=== PATIENT | male | born 1960 | race Caucasian/White ===

== ENCOUNTER 2024-03-15 14:26 | Emergency (ER) | payer OTHER, SELFPAY ==
[2024-03-15 14:28] VITALS: BP 154/92
[2024-03-15 16:03] VITALS: BMI 30.3
[2024-03-15 16:11] VITALS: BP 157/96
[2024-03-15] MEDS: TORADOL 15 MG IM (16:21)
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
[2024-03-15 18:53] VITALS: BP 155/90
== END 2024-03-15 18:56 | disposition home or self-care (01) ==
LOC: EMR 14:26
PROVIDERS: EMERGENCY PHYSICIAN Student in an Organized Health Care Education/Training Program; FAMILY PHYSICIAN Family Medicine
DX: M54.2 Cervicalgia (principal); V43.52XA Car driver injured in collision with other type car in traffic accident, initial encounter; Y92.410 Unspecified street and highway as the place of occurrence of the external cause
CPT/HCPCS: 99284; 96372; 72125

== ENCOUNTER 2024-12-19 06:22 | Day surgery (SDC) | payer OTHER, SELFPAY | END 2024-12-19 12:36 | disposition home or self-care (01) | LOC: GI 06:22 | PROVIDERS: ATTENDING PHYSICIAN Internal Medicine Gastroenterology | DX: Z12.11 Encounter for screening for malignant neoplasm of colon (principal); K64.8 Other hemorrhoids; K57.30 Diverticulosis of large intestine without perforation or abscess without bleeding; Z86.0100 Personal history of colon polyps, unspecified | CPT/HCPCS: G0105 ==

== ENCOUNTER 2025-03-04 18:17 | Observation (INO) | payer OTHER, SELFPAY ==
[2025-03-04 16:53] VITALS: BP 176/93
[2025-03-04 17:02] VITALS: BP 150/93
[2025-03-04 17:08] VITALS: BMI 30.4
[2025-03-04 17:19] LABS: Hematocrit 43.1 % (39.0-52.0); Hemoglobin 14.4 g/dL (13.0-18.0); Mean Corp Hgb Conc. 33.4 g/dL (33.0-37.0); Mean Corpuscular Volume 96.0 fL (80.0-94.0); Nucleated Red Blood Cells % 0 % (-); Platelet Count 211 10^3/uL (130-400); Red Cell Dist. Width 12.9 % (11.5-14.5)
[2025-03-04 17:32] LABS: ALT (SGPT) 23 U/L (0-50); AST (SGOT) 22 U/L (17-59); Albumin 4.5 g/dl (3.5-5.0); Alkaline Phosphatase 60 U/L (38-126); Blood Urea Nitrogen 16 mg/dl (9-20); Calcium 9.5 mg/dl (8.4-10.2); Carbon Dioxide 26 mmol/L (22-30); Chloride 107 mmol/L (98-107); Estimated Creatinine Clearance 84 ml/min; Glucose 115 mg/dl (70-99); Potassium 4.4 mmol/L (3.5-5.1); Sodium 140 mmol/L (135-145); Total Protein 7.3 g/dl (6.3-8.2); eGFR > 60.00
[2025-03-04 17:34] LABS: INR 0.92; PT 12.8 Sec (11.4-14.6)
[2025-03-04 17:35] LABS: APTT 27.4 Sec (23.4-35.0)
--- NOTE | 2025-03-04 17:42 | ED.CVA ---
History of Present Illness
General
Chief Complaint: CVA/TIA Symptoms
Source: patient and spouse
Exam Limitations: none
Time Seen by Provider: 03/04/25 17:06
Onset of Stroke Symptoms
Onset of symptoms known: Yes
Date of onset of symptoms: 03/04/25
History of Present Illness
History of Present Illness:
64-year-old male started with disequilibrium this morning. Has been going on for about 10 hours. About 4 PM he noted some paresthesias to the right face arm and leg. Also felt like he had difficulty walking. No headache visual issues speech
issues or other complaints. No history of same.
Past History
Past History
ED Past Medical History: None
ED Past Surgical History: Other (Hernia repair)
Social History
Tobacco: Non-smoker
Alcohol: Occasional
Drug: None
Personal:
Living: with family
Review of Systems
Review of Systems
All Other Systems: Not applicable
Constitutional: Denies fever
Respiratory: Reports no symptoms
Cardiac: Reports no symptoms
Phy Exam
Physical Exam
Physical Exam:
GENERAL: Alert and oriented in no apparent distress
EYE: Orbits normal.
NECK: Supple, no carotid bruit
ENT: Pharynx without erythema
CARDIAC: Regular rate and rhythm without any obvious murmurs.
LUNGS: Clear breath sounds,normal
ABDOMEN: Soft, without focal tenderness or distention
NEUROLOGICAL: Alert and oriented , cranial nerves II through XII intact. Speech normal. Zrmmrn-vu-[id number] normal. No drift. Qibx-or-uslt normal. Light touch intact. Visual confrontation normal. No extinction.
SKIN: Warm and dry, no rash or lesion, no discoloration, skin intact.
MUSCULOSKELETAL: No edema,no deformity.Good color
PSYCH: Normal and appropriate interaction.
Scores
NIH Stroke Score
Level of Consciousness: 0 - Alert
LOC Questions: 0-Answers both correctly
LOC Commands: 0-Performs both correctly
Best Horizontal Gaze: 0-Normal
Visual Reeves: 0=Normal, no visual loss
Facial Palsy: 0=Normal, symmetrical
Motor - Right Arm: 0=No drift 10 seconds
Motor - Left Arm: 0=No drift 10 seconds
Motor - Right Le-No drift 5 seconds
Motor - Left Le-No drift 5 seconds
Limb Ataxia: 0-Absent
Sensation: 0-Normal
Best Language: 0-No aphasia
Dysarthria: 0-Normal
Extinction and Inattention: 0-No abnormality
NIH Total Score:: 0
Course
Orders/Labs/Results
Orders:
Orders
03/04/25 16:57
Electrocardiogram (*1) Urgent
Reason for Study: Other
Other Reason for Exam: Possible Stroke
CT HEAD STROKE ALERT W/o Cont Urgent
Comment:
Reason For Exam: RUE weakness since 1599
Bedside Glucose- Treatment ONCE
EKG- Treatment ONCE
Weight As Directed
Frequency: Once
Comment: ZERO STRETCHER SCALE FOR ACCURATE WEIGHT
03/04/25 17:09
Complete Blood Count/With Diff Urgent
Comprehensive Metabolic Panel Urgent
PTT Urgent
Prothrombin Time Urgent
Troponin I Urgent
03/04/25 17:21
CT HEAD/NECK ANG STROKE ALERT Urgent
Comment:
Reason For Exam: Disequilibrium/right paresthesia
03/04/25 17:45
Aspirin Chewable [Low Strength Aspirin] 324 mg PO NOW STA
03/04/25 17:58
Admit/Transfer Patient As Directed
Co-Sign Provider:
Level of Care: Observation services
Assign to:: Telemetry
Physician / Group: sanjuanita
Diagnosis: tia
Reason for Telemetry: CVA/TIA
Date to Stop Telemetry: 03/07/25
Time to Stop Telemetry: 11:00
Code Status As Directed
Resuscitation Status: Do not resuscitate
Reached after discussion with pt or family/Healthcare POA: Yes
DNR Bracelet Application ONCE
PRN Pain Medication Management As Directed
May give lesser potent ordered pain med per pt: Yes
preference::
Protocol:: Medication orders for pain may be administered in a
manner that supports deferring to patient preference
when the pt is:
- Requesting an ordered lesser potent pain medication.
Least to most potent pain medications are defined
as: acetaminophen < NSAID < tramadol < opioids
(morphine, oxycodone, hydromorphone).
- Requesting a lesser dose of the same medication IF
ORDERED.
- Requesting a less intrusive route of administration
if both routes are prescribed by the provider (PO <
IV).
03/04/25 18:03
Code Status As Directed
Resuscitation Status: Full Code
03/07/25 11:00
DC Protocol for Telemetry ONCE
Abnormal Lab Results
03/04/25
17:09
RBC 4.49 L 10^6/uL
(4.70-6.10)
MCV 96.0 H fL
(80.0-94.0)
MCH 32.1 H pg
(27.0-31.0)
MPV 11.5 H fL
(7.4-10.4)
Glucose 115 H mg/dl
(70-99)
03/04/25 17:09
03/04/25 17:09
Vital Signs
Initial and Last Documented VS:
Initial Vital Signs
Temp Pulse Resp BP Pulse Ox
98.2 F 61 16 176/93 100
03/04/25 16:53 03/04/25 16:53 03/04/25 16:53 03/04/25 16:53 03/04/25 16:53
Last Documented Vital Signs
Temp Pulse Resp BP Pulse Ox
98.2 F 62 18 150/93 97
03/04/25 16:53 03/04/25 17:04 03/04/25 17:04 03/04/25 17:02 03/04/25 17:45
*Radiology
Radiology exam reviewed: radiology read reviewed (Negative CT head) and other (No retrievable clot and no significant stenosis)
*Pulse Oximetry
SaO2: 97
Oxygen Mode of Delivery: Room air
Patient hypoxic: no (97)
*Critical Care Note
Total Time (30-74mins, 75-104mins- exclusive of procedures): 40
Update Note
Update Note:
Discussed with neurology fellow. Patient subjectively has some paresthesias to the right arm and feels like his equilibrium is off. He apparently had trouble ambulating getting off the CAT scan machine but when I tested his ambulation he actually
ambulated fairly well with a very slight limp. Patient is not in thrombolytic window based on the disequilibrium. And disability is too low to recommend it anyway. This was discussed with patient and his
ED Attending Note
-
Portions of this chart may have been created with voice recognition software.� Occasional wrong word or��sound alike� substitutions may have occurred due to the inherent limitations of voice recognition software.
Discharge Plan
Departure
Patient Disposition: Admit
Date of Disposition: 03/04/25
Time of Disposition: 17:46
Presentation/result/management discussed w/ accepting MD/DO: Hospitalist
Discharge Problem:
Possible CVA
Interventions
Interventions:
*Risk Screen - Suicide Last Done: 03/04/25 17:37
*General Assessment Last Done: 03/04/25 17:36
*ED- Fall Risk Assessment Last Done: 03/04/25 17:37
ED- Pulmonary Assessment Last Done: 03/04/25 17:12
ED- Neurological Assessment Last Done: 03/04/25 17:15
ED- Cardiac Assessment Last Done: 03/04/25 17:12
ED Swallowing Screen Last Done: 03/04/25 17:43
[2025-03-04 17:45] LABS: Troponin I < 0.012 ng/ml
[2025-03-04] MEDS: LOW STRENGTH ASPIRIN 324 MG PO (17:55)
--- NOTE | 2025-03-04 18:00 | HPS.HSE ---
Addendum entered and electronically signed by Roseann Humphrey MD 03/04/25 18:04:
Patient wants to be full code.
Original Note:
Family Physician
-
Family Physician: Charly Mcginnis
Chief Complaint
-
disequilibrium and parasthesia
History of Present Illness
64-year-old male past medical history of presenting with disequilibrium and dizziness this morning. Ongoing for 10 hours. At 4 PM he noticed paresthesias of the right face and leg and weakness of the right leg. He also had difficulty walking. No
headache or visual issues or speech issues. Denies history of stroke. Never had symptoms like this before.
Denies smoking or alcohol use or drugs.
Family history of heart disease. No family history of strokes.
Medical History
Past Medical History
Past Medical History: Reports None
Past Surgical History: Reports Other ( Hernia repair)
Social History
Tobacco: Non-smoker
Alcohol: None
Drug: None
Family History
Family History: Not pertinent
Allergies / Home Medications
Allergies reflects when Allergies were last updated in [facility].
Home Medications with original date entered in [facility]
Allergy/Medication List:
Allergies
Allergy/AdvReac Type Severity Reaction Status Date / Time
No Known Allergies Allergy Verified 03/04/25 16:53
Home Medications
cyclobenzaprine 10 mg tablet 10 mg PO BID 5 days #10 tabs 03/15/24
ibuprofen 600 mg tablet 600 mg PO Q8H PRN Pain #20 tabs 03/15/24
Review of Systems
-
Constitutional: Reports No Symptoms
EENT: Reports No Symptoms
Respiratory: Reports No Symptoms
Cardiac: Reports No Symptoms
Abdomen/GI: Reports No Symptoms
: Reports No Symptoms
Musculoskeletal: Reports No Symptoms
Skin: Reports No Symptoms
Neurological: Reports See HPI
Endocrine: Reports No Symptoms
Hematologic/Lymphatic: Reports No Symptoms
Psych: Reports No Symptoms
Physical Exam
Vital Signs
Vital Signs
Temp Pulse Resp BP Pulse Ox
98.2 F 62 18 150/93 97
03/04/25 16:53 03/04/25 17:04 03/04/25 17:04 03/04/25 17:02 03/04/25 17:45
Physical Exam
General: Well Developed, Well Nourished and No Apparent Distress
HEENT: NormoCephalic, Moist mucous membranes and Atraumatic
Respiratory: Clear
Cardiac: S1/S2 and Regular Rhythm; No Murmur or Rub
GI: Soft, Non Tender, Non Distended and Normal Bowel Sounds; No Organomegaly
Rectal: Deferred by Provider
Musculoskeletal: No Clubbing, No Cyanosis and No Edema
Skin: No Rash
Neuro: Nonfocal/grossly intact
Laboratory Results
-
03/04/25 17:09
03/04/25 17:09
Laboratory Results
PT 12.8 Sec (11.4-14.6) 03/04/25 17:09
INR 0.92 03/04/25 17:09
APTT 27.4 Sec (23.4-35.0) 03/04/25 17:09
Total Bilirubin 0.5 mg/dl (0.2-1.3) 03/04/25 17:09
AST 22 U/L (17-59) 03/04/25 17:09
ALT 23 U/L (0-50) 03/04/25 17:09
Alkaline Phosphatase 60 U/L (38-126) 03/04/25 17:09
Troponin I < 0.012 ng/ml 03/04/25 17:09
Data Reviewed
-
Lab Data: Labs Reviewed by me
Old Records: Reviewed
Impression/Plan
-
IMPRESSION:
PLAN:
# Disequilibrium/right-sided paresthesias concerning for TIA
-No symptoms currently, NIH 0
- Aspirin 325 mg given
- CT head shows no acute abnormality
- CTA head and neck pending
- Check MRI brain
- Check A1c and lipid panel
DNR/DNI
DVT prophylaxis�SCDs
Regular diet
[2025-03-04 20:48] VITALS: BP 150/81
[2025-03-04 21:03] VITALS: BP 142/84
[2025-03-04 21:40] VITALS: BP 152/80; BMI 29.7
--- NOTE | 2025-03-04 22:00 | PTCARENOTE ---
Pt brought to unit from ED via stretcher. Ambulated to bed. A&Ox3. NIH of 0. Oriented to unit. Call light within reach. Plan of care ongoing.
[2025-03-04 22:22] LABS: HDL Cholesterol 56 mg/dl; LDL Cholesterol, Calculated 126 mg/dl; Very Low Density Lipoprotein 37 mg/dl (0-30)
[2025-03-05 03:20] VITALS: BP 123/77
--- NOTE | 2025-03-05 07:07 | W.PN.HOSP.TC ---
Today's Communication/Plan
-
discharge
Assessment / Plan
Assessment / Plan
Physical Exam
General: No acute distress, appears comfortable at this time
HEENT: NormoCephalic, Moist mucous membranes and Atraumatic
Respiratory: Clear to auscultation b/l
Cardiac: S1/S2 and Regular Rhythm; No Murmur or Rub
GI: Soft, Non Tender, Non Distended and Normal Bowel Sounds; No Organomegaly
Musculoskeletal: No Clubbing, No Cyanosis and No Edema
Skin: No Rash
Neuro: AOx3 conversant coherent
Psych: Calm
64M Hx Hernia Repair otherwise no significant PMHx here for evaluation transient right sided weakness paraesthesia ambulatory dysfunction TIA, CVA ruled out.
PLAN:
# Disequilibrium/right-sided paresthesias concerning for TIA
-No symptoms currently, NIH 0
- Aspirin 325 mg given
- CT head shows no acute abnormality
- CTA head and neck noted no high-grade stenosis or occlusion of the [place], 50% stenosis left carotid bulb noted
- Carotid US appreciated appreciated no significant stenosis b/l
- MRI brain appreciated no acute abn's
- A1c pending, sugar levels in BMP not suggestive of diabetes
- Lipid panel appreciated Hyperlipidemia
- Neuro eval appreciated ASA Plavix 21 days then ASA alone, Atorvastatin 80 mg daily
-PT/OT eval appreciated no needs
Full Code
DVT prophylaxis�SCDs
Medically stable for discharge home with outpatient follow up recommendations.
Total Time Preparing Discharge ___40____ minutes including examination of the patient, summary of the hospital stay, instructions for continuing care to all relevant caregivers; and preparation of discharge records, prescriptions, and referral
forms if necessary.
Anticipated Discharge: Today
Subjective/Interval History
-
Date of Service: March 05, 2025
Seen and examined at bedside in no acute distress resting comfortably in bed. Reports symptoms completely resolved at this time. Overall reports feeling well. Eager to go home. present during evaluation.
Objective Data
-
Labs:
Laboratory Results
03/05/25
07:07
WBC Pending
Hgb Pending
Hct Pending
Plt Count Pending
Sodium Pending
Potassium Pending
Chloride Pending
Carbon Dioxide Pending
BUN Pending
Creatinine Pending
Glucose Pending
Calcium Pending
Total Bilirubin Pending
AST Pending
ALT Pending
Alkaline Phosphatase Pending
Vital Signs:
Vital Signs
Temp Pulse Resp BP Pulse Ox
97.6 F 60 16 123/77 95
03/05/25 03:20 03/05/25 03:20 03/05/25 03:20 03/05/25 03:20 03/05/25 03:20
I&O
03/04/25 03/05/25 03/06/25
06:59 06:59 06:59
Intake Total 240 / 240
Balance 240 / 240
[2025-03-05 07:58] LABS: Hematocrit 40.1 % (39.0-52.0); Hemoglobin 13.5 g/dL (13.0-18.0); Mean Corp Hgb Conc. 33.7 g/dL (33.0-37.0); Mean Corpuscular Volume 95.2 fL (80.0-94.0); Nucleated Red Blood Cells % 0 % (-); Platelet Count 193 10^3/uL (130-400); Red Cell Dist. Width 12.8 % (11.5-14.5)
--- NOTE | 2025-03-05 08:21 | CON.NEURO4 ---
Addendum entered and electronically signed by Jaylan Rivers MD 03/05/25 09:44:
Studies reviewed.
I have personally examined the patient. I reviewed and agree with the LOCATION ANALYST's Note.
My addenda:
Awake, alert, interactive. No acute distress.
Speech intact.
Follows 2-step requests w/o difficulty. No tremor.
Extra-ocular movements grossly intact.
Facial movements full and symmetric. Hearing intact to normal conversational volume.
Normal UE movements bilaterally.
Neck: full ROM.
Chest: no dyspnea
Heart: no JVD
Ext: (-) Clubbing, (-) Cyanosis, (-) Edema
IMPRESSIONS/RECOMMENDATIONS:
Abrupt onset of right hemibody sense of weakness and disequilibrium during headache. Patient found to have 50% left internal carotid artery stenosis.
Provide dual antiplatelet therapy with aspirin and clopidogrel for 21 days then aspirin alone
Provide prochlorperazine 10 mg as needed for headache which the patient is experiencing currently again today
Initiate atorvastatin 80 mg daily due to elevated LDL greater than 70
Check carotid ultrasound, if carotid ultrasound demonstrates 50 or greater percent stenosis of the left internal carotid artery, would consult vascular surgery to determine if procedural intervention is warranted
Check blood work for potential metabolic abnormalities
Rehabilitation evaluations
Provide medical educational materials
D/W patient
All questions answered.
Will continue to follow pending results.
Original Note:
Documented by User: Kristal Rust NP 03/05/25 09:14
Consultation - Neurology 4
-
CONSULTING PHYSICIAN: Jaylan Rivers MD
REFERRING PHYSICIAN: Hospitalists/Dr. Steven
DICTATED BY: AMISHA Osuna
DATE/TIME OF REQUEST: 03/05/25
DATE/TIME OF CONSULTATION: 03/05/25
Reason for Consultation: Headache, right-sided numbness/weakness, disequilibrium
History of Present Illness:
This is a 64-year-old right-handed male who has presented to the hospital on 03/04/25 with report of disequilibrium and transient right-sided paresthesias/weakness. He was previously evaluated by our Neurology service once in 2016 for report of
three weeks of headache, at which time he had an MRI brain and MRA head/neck that were unremarkable.
Patient reports that two nights ago on 03/03/25 he went to bed around 2200 in his usual state. He awoke to use the bathroom during the night once around 0300 and still felt in his usual state. He then awoke yesterday morning (03/04/25) at 0700 with a
headache. The headache is left-sided behind and above his left eye. He describes it as an aching sensation and rates it a 6-7/10. He denies any photo/phonophobia, nausea, or vomiting. The headache persisted throughout the day. At 1600, he notes that
he suddenly developed a sensation of disequilibrium and his entire right arm and right leg became numb and weak. He couldn't lift his right arm and he notes that his right leg felt difficult to place where it moved and was unsteady standing on it.
These symptoms completely resolved after 10 minutes. He called his PCP who referred him to the ER for evaluation. CT head and CTA head/neck were obtained on arrival and are negative for any acute abnormalities. NIHSS was 0. He was not a candidate
for TNK/IAT due to NIHSS 0, no LVO. Blood pressure was 176/93. He was given a full dose aspirin in the ER.
This morning (03/05/25), he notes that he still has his 6-7/10 left-sided headache. He denies any dizziness, vision changes, speech/swallow difficultly, numbness and weakness. He notes that he has a headache about once per month. His headaches are
not associated with photo/phonophobia, nausea, or vomiting. He has never had numbness, weakness, or disequilibrium with a headache in the past.
Past Medical History: HLD
Surgical History: Inguinal hernia repair
Family History: Reviewed and noncontributory.
Social History: Denies tobacco and illicit drug use. Occasional alcohol.
Allergies: No known allergies.
Home Medications: See below.
Review of Symptoms:
Patient denies any fever, chest pain, shortness of breath, GI or symptoms.
�Per the HPI.�All systems are reviewed negative except above.
Physical Exam:
The patient is afebrile, abdomen is nondistended, breathing is unlabored, skin is warm and dry, no edema.
NIH Stroke Scale:
I performed the NIH stroke scale on the patient on 03/05/25 at 0830. The patient scored 0 points on the NIH stroke scale assessment, which were assigned as follows: See below.
Neurologic Examination:
The patient is awake, alert and oriented x 3. He is able to follow commands and answer questions appropriately. There is no aphasia or dysarthria. On cranial nerve assessment, pupils are 3 mm bilateral, round and reactive to light and
accommodation. Visual reeves are full. Extraocular movements are intact. Facial sensations are intact and bilaterally symmetrical, there is no facial asymmetry. Hearing is intact bilaterally to normal conversation volume. Tongue palate and uvula are
midline. Sternocleidomastoid strengths are full bilaterally. Motor strengths are 5/5 bilateral upper and lower extremities on medical research [place] scale. There is no drift or involuntary movement noted. Deep tendon reflexes are 2+ bilateral
upper and lower extremities and Babinski is absent bilaterally. There was no extinction noted on double simultaneous stimulation. Coordination is intact by finger to nose bilaterally.
Lab Results: See below.
Neuro Imaging:
1. CT head 03/04/25: No acute intracranial abnormality. ASPECT score: 10.
2. CTA head/neck 03/04/25: No evidence for high-grade stenosis or occlusion of the afognak of [place]. Bilateral carotid bifurcation atherosclerosis with 50% stenosis of the left carotid bulb and less than 30% stenosis of the right carotid bulb.
Differentials for the patient's presentation include:
1. Headache associated with transient disequilibrium and right-sided paresthesias/weakness. Uncertain etiology of symptoms; possibilities include TIA, small ischemic stroke, or migraine with aura.
2. CTA head/neck is suggestive of L ICA 50% stenosis.
3. Hyperlipidemia.
Patient has the following risk factors for their symptoms: HLD, hx headaches
IV Tenecteplase/IAT candidacy: Not a candidate due to NIHSS 0, no LVO.
Recommendations:
-MRI brain noncontrast pending.
-Carotid ultrasound pending to evaluate for L ICA stenosis.
-Provide prochlorperazine 10mg IV x1 now for headache.
-Continue DAPT with aspirin 81mg and clopidogrel 75mg daily for 21 days. After 21 days, discontinue clopidogrel and continue aspirin 81mg daily only, indefinitely.
-Goal normotension.
-LDL goal <70. LDL is 126. Continue newly initiated atorvastatin 80mg daily.
-Goal normoglycemia, hbA1c is pending.
-Checking blood work for metabolic abnormalities.
-NIHSS and neurological checks per unit guidelines.
-Provide patient with a stroke education packet.
-PT/OT/ST evaluation.
-DVT prophylaxis.
-Will follow pending results.
-Patient should follow-up as an outpatient with Neurology.
Discussed patient care with: Dr. Rivers, the patient
Vital Signs and Labs
-
Vital Signs and Labs:
Vital Signs
Temp Pulse Resp BP Pulse Ox
97.3 F 56 16 139/84 97
03/05/25 08:27 03/05/25 08:27 03/05/25 08:27 03/05/25 08:27 03/05/25 08:27
Lab Results
03/05/25 07:07
03/05/25 07:07
PT 12.8 Sec (11.4-14.6) 03/04/25 17:09
INR 0.92 03/04/25 17:09
APTT 27.4 Sec (23.4-35.0) 03/04/25 17:09
Sodium 139 mmol/L (135-145) 03/05/25 07:07
Potassium 4.3 mmol/L (3.5-5.1) 03/05/25 07:07
BUN 14 mg/dl (9-20) 03/05/25 07:07
Glucose 83 mg/dl (70-99) 03/05/25 07:07
Calcium 9.1 mg/dl (8.4-10.2) 03/05/25 07:07
LDL Cholesterol, Calc Cancelled 03/04/25 21:44
Medications
-
Active Medications
Generic Name Dose Route Start Last Admin
Trade Name Freq PRN Reason Stop Dose Admin
Acetaminophen 650 mg 03/05/25 08:32
Acetaminophen 325 Mg Tablet PO 04/02/25 08:31
Q6HPRN PRN
mild pain/ fever>100.5F/SCHREIBER
Aspirin 81 mg 03/05/25 08:00 03/05/25 08:24
Aspirin 81 Mg (Enteric Coated) Tablet PO 04/02/25 07:59 81 mg
DAILY CHUCK Administration
Atorvastatin Calcium 80 mg 03/05/25 18:00
Atorvastatin (Lipitor) 80 Mg Tablet PO 04/02/25 17:59
QPM CHUCK
Clopidogrel Bisulfate 75 mg 03/05/25 08:00 03/05/25 08:24
Clopidogrel 75 Mg Tablet PO 03/25/25 08:01 75 mg
DAILY CHUCK Administration
Home Medications
�Medication �Instructions �Recorded
No Meds [No Current Medications] 03/04/25
NIH Stroke Score
Subsequent NIH Scale
Date of Subsequent NIH Scale: 03/05/25
Time of Subsequent NIH Scale: 08:30
NIH Stroke Score
Level of Consciousness: 0 - Alert
LOC Questions: 0-Answers both correctly
LOC Commands: 0-Performs both correctly
Best Horizontal Gaze: 0-Normal
Visual Reeves: 0=Normal, no visual loss
Facial Palsy: 0=Normal, symmetrical
Motor - Right Arm: 0=No drift 10 seconds
Motor - Left Arm: 0=No drift 10 seconds
Motor - Right Le-No drift 5 seconds
Motor - Left Le-No drift 5 seconds
Limb Ataxia: 0-Absent
Sensation: 0-Normal
Best Language: 0-No aphasia
Dysarthria: 0-Normal
Extinction and Inattention: 0-No abnormality
NIH Total Score:: 0
Modified [place] (mRS) Score
Modified [place] Scale (mRS): No symptoms
Score: 0
Alteplase Contraindication
Inclusion and Exclusion criteria reviewed: Yes

Documented by User: Jaylan Rivers MD 03/05/25 09:30
NIH Stroke Score
NIH Stroke Score
NIH Total Score:: 0
Modified [place] (mRS) Score
Score: 0
[2025-03-05] MEDS: ASPIR LOW (ENTERIC COATED) 81 MG PO (08:24)
[2025-03-05] MEDS: PLAVIX 75 MG PO (08:24)
[2025-03-05 08:27] VITALS: BP 139/84
[2025-03-05 08:49] LABS: ALT (SGPT) 22 U/L (0-50); AST (SGOT) 21 U/L (17-59); Albumin 4.0 g/dl (3.5-5.0); Alkaline Phosphatase 56 U/L (38-126); Blood Urea Nitrogen 14 mg/dl (9-20); Calcium 9.1 mg/dl (8.4-10.2); Carbon Dioxide 24 mmol/L (22-30); Chloride 109 mmol/L (98-107); Estimated Creatinine Clearance 83 ml/min; Glucose 83 mg/dl (70-99); Potassium 4.3 mmol/L (3.5-5.1); Sodium 139 mmol/L (135-145); Total Protein 6.6 g/dl (6.3-8.2); eGFR > 60.00
[2025-03-05] MEDS: COMPAZINE 10 MG IV (08:57)
[2025-03-05 10:17] LABS: Ferritin 185.0 ng/ml (17.9-464.0)
[2025-03-05 10:49] LABS: Folate 11.2 ng/ml (2.76-20); Vitamin B12 616 pg/ml (239-931)
[2025-03-05 11:34] VITALS: BP 148/94
--- NOTE | 2025-03-05 12:14 | CM ---
Patient seen at bedside
IA completed
ABDUL form explained & signed. In chart
Dx: TIA
MRI brain-No acute intracranial abnormality noted
Patient lives with in 1 story home, [address]
PLOF: Independent, drives
Denies DME
Denies VN/Rehab
PCP: Charly Mcginnis
Pharmacy: [facility]
PLAN: home, no needs anticipated
[2025-03-05 12:45] VITALS: BP 130/83; PULSE 65; O2SAT 98
--- NOTE | 2025-03-05 14:23 | W.DCSUMMARY ---
Discharge Summary
Discharge Data
Date of Admission: 03/04/25
Date of Discharge: 03/05/25
-
Pending Results: Yes (A1c)
Discharge Plan
-
Patient Disposition: Home (Routine Discharge)
Discharge Diagnosis/Procedures: Transient Ischemic Attack (TIA)
Stroke ruled out
Hyperlipidemia
Condition: Good
Diet: Low Cholesterol and 2 Gram Sodium
Activity: As tolerated
Driving Restrictions: As prior to admission
Bathing Restrictions: None
Blood Work: Repeat Lipid Panel with primary care provider in 1 month of discharge
Activity Restrictions/Additional Instructions:
Follow up with primary care provider in 1 week of discharge and Neurology in 1 month of discharge.
Dual antiplatelet, Aspirin and Plavix, prescribed for 21 days (one day completed in hospital) for treatment severe transient ischemic attack (TIA) and associate stroke risk reduction. January 22, 2025Sunday is your last day for Plavix. Continue
with Aspirin indefinitely or until otherwise instructed by your primary care provider or other healthcare provider involved in your care.
Atorvastatin has been prescribed for Hyperlipidemia and for associate Stroke Risk Reduction.
Avoid taking additional NSAID medications (such as ibuprofen, meloxicam, Naproxen, etc) as these medications will likely interact with your dual antiplatelet medications as above.
Please take your medications as prescribed/recommended and follow up with primary care provider Neurology and/or other healthcare provider involved in your care for refills and/or further adjustment to your medication regimen as necessary.
Please keep a daily log of your blood pressures at home, to review with your primary care provider in follow up for further evaluation/treatment possible Hypertension.
Referrals:
Jaylan Rivers MD [Active, Neurology] - in one month
Charly Mcginnis MD [Family Provider, Family Practice] - in one week
Prescriptions:
New
aspirin 81 mg Tablet,Delayed Release (Dr/Ec)
81 mg PO DAILY Qty: 30 0RF
atorvastatin 80 mg Tablet
80 mg PO QPM Qty: 30 0RF
clopidogrel 75 mg Tablet
75 mg PO DAILY Qty: 20 0RF
Rx Instructions:
January 22 2025 Wed is your last day for Plavix
Discharge Orders:
Discharge Patient (As Directed); Ordered 03/05/25
Ordered By: Dustin Steven
Discharge Date and Time
Print Language: CZECH
[2025-03-05 15:02] LABS: Glycohemoglobin (HgbA1c) 5.8 % (4.0-5.6)
== END 2025-03-05 14:58 | disposition home or self-care (01) ==
LOC: 3 WEST ACU 18:17
PROVIDERS: Emergency Medicine; ADMITTING PHYSICIAN Hospitalist; ATTENDING PHYSICIAN Internal Medicine; CONSULT PHYSICIAN Psychiatry & Neurology Neurology; EMERGENCY PHYSICIAN Emergency Medicine; FAMILY PHYSICIAN Family Medicine
DX: R20.2 Paresthesia of skin (principal); I65.23 Occlusion and stenosis of bilateral carotid arteries; Z66 Do not resuscitate; Z79.899 Other long term (current) drug therapy; E78.5 Hyperlipidemia, unspecified
CPT/HCPCS: 70450; 70496; 70498; 70551; 80053; 80061; 82607; 82728; 82746; 83036; 84443; 84484; 85025; 85610; 85730; 93005; 93880; 97163; 97167; 99291; G0378; Q9967

== ENCOUNTER → 2025-04-16 06:56 | Outpatient (REF) | payer OTHER, SELFPAY | LOC: HWRCS 06:56 | PROVIDERS: ATTENDING PHYSICIAN Physician Assistant Medical; FAMILY PHYSICIAN Family Medicine | DX: G45.9 Transient cerebral ischemic attack, unspecified (principal); I10 Essential (primary) hypertension; R06.09 Other forms of dyspnea | CPT/HCPCS: 93306 ==